=== PATIENT | male | born 1990 | race Two or more races ===

== ENCOUNTER 2019-12-21 20:13 | Emergency (ER) | payer OTHER ==
[~2019-12-21] VITALS: Ht 165.1 cm; Wt 63.5 kg
[2019-12-21] MEDS ORDERED: ACETAMINOPHEN 325 MG TAB PO ONE ×2 (21:12→21:15)
[2019-12-21] MEDS ORDERED: CARISOPRODOL 350 MG TAB PO ONE (22:45)
[2019-12-21] MEDS ORDERED: HYDROcodone-ACET 5/325MG TAB PO ONE (22:45)
[2019-12-22] VITALS: BP 114/74
== END 2019-12-22 00:10 | disposition home or self-care (01) ==
LOC: EDBD 20:13 → ER 20:16
DX: S33.5XXA Sprain of ligaments of lumbar spine, initial encounter (principal); M62.830 Muscle spasm of back; X50.9XXA Other and unspecified overexertion or strenuous movements or postures, initial encounter; Y93.89 Activity, other specified; Y92.89 Other specified places as the place of occurrence of the external cause; Y99.8 Other external cause status
CPT/HCPCS: 72128; 72131

== ENCOUNTER 2021-06-07 07:29 | Emergency (ER) | payer MEDICAID, OTHER ==
[~2021-06-07] VITALS: Ht 165.1 cm; Wt 63.5 kg
[2021-06-07 07:30] VITALS: BP 115/78
== END 2021-06-07 10:12 | disposition left against medical advice (07) ==
LOC: ER 07:29 → EDBD 07:29 → ER 08:30
DX: S69.91XA Unspecified injury of right wrist, hand and finger(s), initial encounter (principal); Z88.1 Allergy status to other antibiotic agents; W22.01XA Walked into wall, initial encounter; Y93.89 Activity, other specified; Y92.89 Other specified places as the place of occurrence of the external cause; Y99.8 Other external cause status
CPT/HCPCS: 73110; 73130

== ENCOUNTER 2023-10-29 23:10 | Emergency (ER) | payer MEDICAID ==
[~2023-10-29] VITALS: Ht 170.2 cm; Wt 70.0 kg
[2023-10-29] MEDS: IOHEXOL 300 MG/ML 100ML BOTTLE IJ ONE (23:28)
[2023-10-29 23:29] LABS: Basophils # (auto) 0 10 ^3/uL (0-0.2); Basophils % (auto) 0.2 % (0.0-2.0); Eosinophils # (auto) 0 10 ^3/uL (0-0.8); Eosinophils % (auto) 0.5 % (0.0-7.0); Hematocrit 43.4 % (41.0-53.0); Hemoglobin 14.7 g/dL (13.5-17.5); Lymphocytes # (auto) 2.8 10 ^3/uL (0.4-5.4); Lymphocytes % (auto) 27.9 % (10.0-50.0); Mean Corpuscular Hemoglobin 31.1 pg (28.0-32.0); Mean Corpuscular Hgb Conc. 33.7 g/dL (32.0-36.0); Mean Corpuscular Volume 92.1 fL (80.0-100.0); Monocytes # (auto) 0.7 10 ^3/uL (0-1.3); Monocytes % (auto) 7.4 % (0.0-12.0); Neutrophils # (auto) 6.3 10 ^3/uL (1.6-8.6); Platelet Count (auto) 220 10^3/uL (140-450); Red Blood Cells 4.72 10^6/uL (4.5-5.90); White Blood Cell 9.9 10^3/uL (4.4-10.8)
[2023-10-29] MEDS: MORPHINE SULFATE 4 MG/ML SYR/VIAL IV ONE (23:32)
[2023-10-29] MEDS: ONDANSETRON HCL 4 MG/2 ML VIAL IV ONE (23:33)
[2023-10-29] MEDS: TETANUS-DIPTH-ACEL PERTUSSIS 0.5ML SYR Tdap IM ONE (23:35)
[2023-10-29] MEDS: SODIUM CHLORIDE 0.9% 1,000 ML IVB ONE (23:44)
[2023-10-29 23:46] LABS: INR 1.07 (0.9-1.15); Partial Thromboplastin Time 23.3 SEC (24.5-34.5); Prothrombin Time 11.3 sec (9.3-11.8)
[2023-10-29 23:59] LABS: Chloride 106 mmol/L (98-107); Potassium 3.3 mmol/L (3.5-5.1); Sodium 136 mmol/L (136-145)
[2023-10-30] LABS: Anion Gap 5 (5-15); Carbon Dioxide 25 mmol/L (20-30)
[2023-10-30] MEDS ORDERED: MORPHINE SULFATE INJ 2 MG/ml SYRG IV ONE
[2023-10-30] MEDS: MORPHINE SULFATE 4 MG/ML SYR/VIAL ONE (00:03)
[2023-10-30] MEDS: MORPHINE SULFATE 4 MG/ML SYR/VIAL IV ONE (00:03)
[2023-10-30] MEDS: ONDANSETRON HCL 4 MG/2 ML VIAL IV ONE (00:04)
[2023-10-30 00:05] LABS: BUN/Creatinine Ratio 10.5 (10.0-20.0); Blood Urea Nitrogen 12 mg/dL (9-23); Glucose 132 mg/dL (74-106)
[2023-10-30 00:06] LABS: Blood Alcohol < 3.0 mg/dL (<10)
[2023-10-30] MEDS: HYDROmorphone HCL 2 MG/ML VL/or syr IV ONE (01:13)
[2023-10-30 01:16] LABS: Urine Bacteria None Seen /hpf (None Seen)
[2023-10-30 01:26] LABS: Urine Blood Negative /uL (Negative); Urine Clarity Clear (Clear); Urine Color Yellow (Yellow); Urine Mucus FEW (None Seen); Urine Protein, UAD 1+ (Negative); Urine Urobilinogen Normal (Negative); Urine WBC <1 /hpf (0 - 3)
[2023-10-30 01:28] LABS: Urine Specific Gravity > 1.050 (1.001-1.035)
[2023-10-30 01:35] VITALS: BP 110/75; PULSE 107; RESP 13; TEMP 98; O2SAT 93
[2023-10-30 01:40] LABS: Amphetamine Screen, Urine Neg (NEGATIVE); Barbiturate Scree,Urine Neg (NEGATIVE); Benzodiazephine Screen, Urine Neg (NEGATIVE); Cannabinoid Screen, Urine Pos (NEGATIVE); Cocaine Screen, Urine Neg (NEGATIVE); Opiate Scree,Urine Pos (NEGATIVE); Phencyclidine Screen, Urine Neg (NEGATIVE)
== END 2023-10-30 01:52 | disposition short-term general hospital (02) ==
LOC: ER 23:10 → EEVIPCON 23:10 → ER 10-30 01:52
DX: S31.139A Puncture wound of abdominal wall without foreign body, unspecified quadrant without penetration into peritoneal cavity, initial encounter (principal); Z88.8 Allergy status to other drugs, medicaments and biological substances; Z79.899 Other long term (current) drug therapy; Z86.2 Personal history of diseases of the blood and blood-forming organs and certain disorders involving the immune mechanism; W34.09XA Accidental discharge from other specified firearms, initial encounter; Y93.89 Activity, other specified; Y92.89 Other specified places as the place of occurrence of the external cause; Y99.8 Other external cause status
CPT/HCPCS: 36415; 71260; 74177; 80048; 80307; 80320; 81001; 85025; 85610; 85730; 86850; 86900; 86901; 90471; 90715; 93005; 96361; 96374; 96375; 96376; 99285; J1170; J2270; J2405; J7030; Q9967

== ENCOUNTER 2024-07-16 11:25 | Inpatient (IN) | payer MEDICAID ==
[~2024-07-16] VITALS: Ht 165.1 cm; Wt 68.3 kg
[2024-07-16 11:35] VITALS: PULSE 63; RESP 17; O2SAT 100
--- NOTE | 2024-07-16 11:50 | ED.PDOC ---
History of Present Illness HPI Comments 33M BIBA w/ prior MHx of Prolapsed Valve, Anxiety, Depression and c/c of CP x8hrs. EMS report that the pt woke up w/ Right Sided CP, which is non radiating but the the pt did have SOB, N/, Right/left Arm numbness. Pt notes that he did have blood in the stool for the past 2 days. EMS note that the pt was given 324mg of aspirin via IV. Denies chills, fever, /V/D. No other associated symptoms, modifiers, recent injuries or sick contacts present at this time. Chief Complaint: Chest Pain Time Seen by MD: 11:20 Reviewed Notes: Nurses Notes, Medications, Allergies Allergies: Coded Allergies: Doxycycline (Verified Allergy, Unknown, 06/07/21) Information Source: Patient, Emergency Med Personnel Mode of Arrival: EMS Severity: Moderate Timing: Hours Duration: Since onset, Hours Prehospital treatment: Treatment (Ibuprofen) Past Medical History PAST MEDICAL HISTORY: Anxiety, Depression, Denies Past Medical History (Other): Prolapsed Valve Surgical History: Denies all surgeries Family History Family History: Reviewed,noncontributory to illness, Unknown Social History Smoker: Non-Smoker Alcohol: Denies ETOH Use Drugs: Marijuana Lives In: Home Constitutional: denies: chills, diaphoresis, fatigue, fever, malaise, sweats, weakness, others EENTM: denies: blurred vision, double vision, ear bleeding, ear discharge, ear drainage, ear pain, ear ringing, eye pain, eye redness, hearing loss, mouth pain, mouth swelling, nasal discharge, nose bleeding, nose congestion, nose pain, photophobia, tearing, throat pain, throat swelling, voice changes, others Respiratory: reports: shortness of breath; denies: cough, hemoptysis, orthopnea, SOB at rest, SOB with excertion, stridor, wheezing, others Cardiovascular: reports: chest pain; denies: dizzy spells, diaphoresis, Dyspnea on exertion, edema, irregular heart beat, left arm pain, lightheadedness, palpitations, PND, syncope, others Gastrointestinal: reports: nausea; denies: abdomen distended, abdominal pain, blood streaked bowels, constipated, diarrhea, dysphagia, difficulty swallowing, hematemesis, melena, poor appetite, poor fluid intake, rectal bleeding, rectal pain, vomiting, others Genitourinary: denies: burning, dysuria, flank pain, frequency, hematuria, incontinence, penile discharge, penile sore, pain, testicle pain, testicle swelling, urgency, others Neurological: reports: numbness (Left Arm/Right Arm); denies: dizziness, fainting, headache, left sided numbness, left sided weakness, paresthesia, pre- existing deficit, right sided numbness, right sided weakness, seizure, speech problems, tingling, tremors, weakness, others Musculoskeletal: denies: back pain, gout, joint pain, joint swelling, muscle pain, muscle stiffness, neck pain, others Integumetry: denies: bruises, change in color, change in hair/nails, dryness, laceration, lesions, lumps, rash, wounds, others Allergic/Immunocompromised: denies: Difficulty Healing, Frequent Infections, Hives, Itching, others Hematologic/Lymphatic: denies: anemia, blood clots, easy bleeding, easy bruising, swollen glands, others Endocrine: denies: excessive hunger, excessive sweating, excessive thirst, excessive urination, flushing, intolerance to cold, intolerance to heat, unexplained weight gain, unexplained weight loss, others Psychiatric: denies: anxiety, bipolar disorder, depression, hopeless, panic disorder, schizophrenia, sleepless, suicidal, others All Other Systems: Reviewed and Negative Physical Exam General Appearance: Moderate Distress, Normal HEENT: Normal ENT Inspection, Pharynx Normal, TMs Normal Neck: Full Range of Motion, Non-Tender, Normal, Normal Inspection Respiratory: Chest Non-Tender, Lungs Clear, No Accessory Muscle Use, No Respiratory Distress, Normal Breath Sounds Cardiovascular: No Edema, No JVD, No Murmur, No Gallop, Normal Peripheral Pulses, Regular Rate/Rhythm Breast Exam: Deferred Gastrointestinal: No Organomegaly, Non Tender, No Pulsatile Mass, Normal Bowel Sounds, Soft Genitalia: Deferred Pelvic: Deferred Rectal: Deferred Extremities: No calf tenderness, Normal capillary refill, Normal inspection, Normal range of motion, Non-tender, No pedal edema Musculoskeletal : Apperance: Normal Neurologic: Alert, 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 Was a procedure done?: No EKG EKG : Pulse Rate (adult): 81 Cardiac Rhythm: NSR Differential Dx Considerations may include: Anxiety Electrolyte imbalance X-Ray, Labs, Meds, VS Vital Signs Date Time Temp Pulse Resp B/P (MAP) Pulse Ox O2 Delivery O2 Flow Rate FiO2 07/16/24 12:29 56 07/16/24 12:22 81 07/16/24 12:00 64 07/16/24 11:47 97.7 80 30 110/74 (86) 98 97.7 07/16/24 11:35 97.7 63 17 118/64 (82) 100 97.7 07/16/24 11:35 63 17 100 Room Air* 0 21 07/16/24 11:25 81 Lab Test 07/16/24 12:54 07/16/24 11:41 07/16/24 11:36 Range/Units Troponin I High Sensitivity Pending 3 L </=54 ng/L White Blood Count 5.7 4.4-10.8 10^3/uL Red Blood Count 5.00 4.5-5.90 10^6/uL Hemoglobin 15.2 13.5-17.5 g/dL Hematocrit 44.1 41.0-53.0 % Mean Corpuscular Volume 88.3 80.0-100.0 fL Mean Corpuscular Hemoglobin 30.4 28.0-32.0 pg Mean Corpuscular Hemoglobin Concent 34.4 32.0-36.0 g/dL Red Cell Distribution Width 13.2 11.8-14.3 % Platelet Count 220 140-450 10^3/uL Mean Platelet Volume 9.0 6.9-10.8 fL Neutrophils (%) (Auto) 62.4 37.0-80.0 % Lymphocytes (%) (Auto) 29.2 10.0-50.0 % Monocytes (%) (Auto) 7.4 0.0-12.0 % Eosinophils (%) (Auto) 0.7 0.0-7.0 % Basophils (%) (Auto) 0.3 0.0-2.0 % Neutrophils # (Auto) 3.6 1.6-8.6 10 ^3/uL Lymphocytes # (Auto) 1.7 0.4-5.4 10 ^3/uL Monocytes # (Auto) 0.4 0-1.3 10 ^3/uL Eosinophils # (Auto) 0 0-0.8 10 ^3/uL Basophils # (Auto) 0 0-0.2 10 ^3/uL Nucleated Red Blood Cells 0.3 % Sodium Level 137 136-145 mmol/L Potassium Level 3.5 3.5-5.1 mmol/L Chloride Level 104 98-107 mmol/L Carbon Dioxide Level 23 20-31 mmol/L Anion Gap 10 5-15 Blood Urea Nitrogen 11 9-23 mg/dL Creatinine 0.91 0.700-1.30 mg/dL Glomerular Filtration Rate Calc 113 >90 mL/min BUN/Creatinine Ratio 12.1 10.0-20.0 Serum Glucose 102 74-106 mg/dL Calcium Level 9.7 8.7-10.4 mg/dL Total Bilirubin 0.6 0.2-1.0 mg/dL Aspartate Amino Transferase (AST) 27 13-40 U/L Alanine Aminotransferase (ALT) 17 7-40 U/L Alkaline Phosphatase 80 46-116 U/L Total Protein 7.4 5.7-8.2 g/dL Albumin 4.8 3.2-4.8 g/dL Urine Opiates Screen Pending Urine Fentanyl Screen Pending Urine Barbiturates Screen Pending Urine Phencyclidine Screen Pending Urine Amphetamines Screen Pending Urine Benzodiazepines Screen Pending Urine Cocaine Screen Pending Urine Cannabinoids Screen Pending Current Medications Medications (Trade) Dose Ordered Sig/Caty Route Start Time Stop Time Status Last Admin Lorazepam (Ativan Inj) 1 mg ONCE ONCE IV 07/16/24 12:00 07/16/24 12:01 DC 07/16/24 12:14 Sodium Chloride 1,000 ml @ 1,000 mls/hr Q1H ONCE IV 07/16/24 12:00 07/16/24 12:59 DC 07/16/24 12:13 Ondansetron HCl (Zofran) 4 mg ONCE ONCE IV 07/16/24 12:00 07/16/24 12:01 DC 07/16/24 12:13 PROCEDURE(s): CXRP - CHEST PORTABLE REASON: CHEST PAIN ORDER NUMBER(s): [id number], ACCESSION NUMBER(s): [id number] EXAM: XR Chest, 1 View CLINICAL INDICATION: CHEST PAIN TECHNIQUE: Frontal view of the chest. COMPARISON: None FINDINGS: LUNGS AND PLEURAL SPACES: Unremarkable. No consolidation. No pneumothorax. HEART: Unremarkable. No cardiomegaly. MEDIASTINUM: Unremarkable. Normal mediastinal contour. BONES/JOINTS: Unremarkable. No acute fracture. OTHER FINDINGS: . IMPRESSION: No acute cardiopulmonary process. Patient alert. Came in because of chest pain. EKG reviewed does show early repolarization. Vitals stable. Answering questions. Establish intravenous access. Was given fluids. Was given Zofran. Was given Ativan. WBC within normal limits. Hemoglobin within normal limits. Possibly drug use. He was given aspirin in the field. Counseled patient on effects of smoking cigarettes for 15 minutes. He does use marijuana. Reviewed his history. Explained to the patient. Continue monitoring. Time of 1ST Reevaluation: 11:50 Reevaluation 1ST: Unchanged Patient Education/Counseling: Diagnosis, Treatment, Prognosis Family Education/Counseling: No Family Present Departure 1 Departure Time of Disposition: 12:22 Impression: Primary Impression: Chest pain of unknown etiology Disposition: ADMITTED INPATIENT Admit to: Med Surg Condition: Guarded Critical Care Note Critical Care Time?: Yes (90 min-critical care time only) Critical care comment: Continue monitor Stability Stability form required: No Heart Score Heart Score: Heart Score Response (Comments) Value History Slightly Suspicious 0 EKG Normal 0 Age <45 0 Risk Factors 1 or 2 risk factors 1 Troponin Normal limit 0 Total 1 I personally scribed for GUSTAVO SIMPSON MD ([email or web address]) on 07/16/24 at 11:50. Electronically submitted by Raad Gomez ([email or web address]). I personally scribed for GUSTAVO SIMPSON MD ([email or web address]) on 07/16/24 at 13:29. Electronically submitted by Raad Gomez ([email or web address]). GUSTAVO SIMPSON MD July 16, 2024 11:50
[2024-07-16 11:52] LABS: Basophils # (auto) 0 10 ^3/uL (0-0.2); Basophils % (auto) 0.3 % (0.0-2.0); Eosinophils # (auto) 0 10 ^3/uL (0-0.8); Eosinophils % (auto) 0.7 % (0.0-7.0); Hematocrit 44.1 % (41.0-53.0); Hemoglobin 15.2 g/dL (13.5-17.5); Lymphocytes # (auto) 1.7 10 ^3/uL (0.4-5.4); Lymphocytes % (auto) 29.2 % (10.0-50.0); Mean Corpuscular Hemoglobin 30.4 pg (28.0-32.0); Mean Corpuscular Hgb Conc. 34.4 g/dL (32.0-36.0); Mean Corpuscular Volume 88.3 fL (80.0-100.0); Monocytes # (auto) 0.4 10 ^3/uL (0-1.3); Monocytes % (auto) 7.4 % (0.0-12.0); Neutrophils # (auto) 3.6 10 ^3/uL (1.6-8.6); Neutrophils % (auto) 62.4 % (37.0-80.0); Nucleated Red Blood Cells % 0.3 %; Platelet Count (auto) 220 10^3/uL (140-450); Red Cell Distribution Width 13.2 % (11.8-14.3); White Blood Cell 5.7 10^3/uL (4.4-10.8)
[2024-07-16 12:13] LABS: Alanine Aminotransferase 17 U/L (7-40); Albumin 4.8 g/dL (3.2-4.8); Alkaline Phosphatase 80 U/L (46-116); Anion Gap 10 (5-15); Aspartate Aminotransferase 27 U/L (13-40); BUN/Creatinine Ratio 12.1 (10.0-20.0); Blood Urea Nitrogen 11 mg/dL (9-23); Calcium 9.7 mg/dL (8.7-10.4); Carbon Dioxide 23 mmol/L (20-31); Chloride 104 mmol/L (98-107); Glucose 102 mg/dL (74-106); Potassium 3.5 mmol/L (3.5-5.1); Sodium 137 mmol/L (136-145); Total Protein 7.4 g/dL (5.7-8.2)
[2024-07-16] MEDS: ONDANSETRON HCL 4 MG/2 ML VIAL IV ONE (12:13)
[2024-07-16] MEDS: SODIUM CHLORIDE 0.9% 1,000 ML IV ONE (12:13)
[2024-07-16 12:14] LABS: Bilirubin, Total 0.6 mg/dL (0.2-1.0)
[2024-07-16] MEDS: LORazepam 2MG/ML-1ML VIAL IV ONE (12:14)
--- NOTE | 2024-07-16 12:17 | DVH ---
EXAM: XR Chest, 1 View CLINICAL INDICATION: CHEST PAIN TECHNIQUE: Frontal view of the chest. COMPARISON: None FINDINGS: LUNGS AND PLEURAL SPACES: Unremarkable. No consolidation. No pneumothorax. HEART: Unremarkable. No cardiomegaly. MEDIASTINUM: Unremarkable. Normal mediastinal contour. BONES/JOINTS: Unremarkable. No acute fracture. OTHER FINDINGS: . IMPRESSION: No acute cardiopulmonary process.
[2024-07-16 13:49] LABS: Amphetamine Screen, Urine Neg (NEGATIVE); Barbiturate Scree,Urine Neg (NEGATIVE); Benzodiazephine Screen, Urine Neg (NEGATIVE); Cannabinoid Screen, Urine Pos (NEGATIVE); Cocaine Screen, Urine Pos (NEGATIVE); Opiate Scree,Urine Neg (NEGATIVE); Phencyclidine Screen, Urine Neg (NEGATIVE)
[2024-07-16 14:00] VITALS: BP 123/83; PULSE 57; RESP 12; TEMP 97.9; O2SAT 100
[2024-07-16] MEDS ORDERED: MORPHINE SULFATE 4 MG/ML SYR/VIAL IV PRN (14:30)
[2024-07-16] MEDS ORDERED: ONDANSETRON HCL 4 MG/2 ML VIAL IV PRN (14:30)
[2024-07-16] MEDS ORDERED: ACETAMINOPHEN 325 MG TAB PO PRN (14:30)
[2024-07-16] MEDS ORDERED: MORPHINE SULFATE INJ 2 MG/ml SYRG IV PRN (14:30)
[2024-07-16] MEDS ORDERED: NITROGLYCERIN 0.4 MG SL TAB SL PRN ×2 (14:30)
[2024-07-16] MEDS ORDERED: CYAN500T3 PO (14:34)
[2024-07-16] MEDS ORDERED: ASCO500T6 PO (14:34)
[2024-07-16] MEDS ORDERED: GABA-1250 PO (14:34)
[2024-07-16] MEDS ORDERED: CHOL200043 PO (14:34)
[2024-07-16] MEDS ORDERED: DEXL30CA6 PO (14:34)
--- NOTE | 2024-07-16 14:35 | DVHHP2 ---
History of Present Illness Reason for Visit: Chest pain History of Present Illness Jerald Ruelas is a 33-year-old male with past medical history of chronic left knee pain, prolapsed valve, anxiety, and depression who presents to the ED with chest pain with SOB, nausea, and dizziness x 1 day. Patient reports that he woke up this morning around 8-9 from his sleep and had chest pain 7/10 pressure- like and constant. He also reports that he has been having dark stools for the last 3 days, 4x yesterday and 1 today. He also reports while wiping bright red blood is noted. Patient also endorses that he thinks he has reflux. Patient endorses that he smokes cigarettes daily, drinks 1-2 beers daily, and uses marijuana. Patient also reports that he sees pain management for his left knee pain. He also endorses that he does not use home oxygen but upon examination he is on 3 L nasal cannula. Patient denies any recent trauma or injury, recent sick contacts, recent i ngestion of spoiled food, recent travels, abdominal, vomiting, diarrhea, fever, or chills. Psych: Anxiety, Depression Past Medical History Chronic left knee pain Prolapse fell Past Surgical History: Other (Left knee tumor removal in 2020 at [place]) Family History: None Smoke: <1 pack per day ALCOHOL: heavy Drugs: Cocaine, Marijuana Lives: with Family Domestic Violence: Neg Review of Systems Constitutional: Yes: Other (Dizziness) Respiratory: Shortness of breath Cardiovascular: Chest Pain Gastrointestinal: Nausea, Melena Allergies: Coded Allergies: Doxycycline (Verified Allergy, Unknown, 06/07/21) Medications Current Medications Medications Dose Ordered Sig/Caty Route Start Time Stop Time Status Last Admin Dose Admin Aspirin 81 mg DAILY PO 07/17/24 10:00 UNV Exam Vital Signs Vital Signs Date Time Temp Pulse Resp B/P (MAP) Pulse Ox O2 Delivery O2 Flow Rate FiO2 07/16/24 14:00 97.9 57 12 123/83 (96) 100 97.9 07/16/24 11:35 Room Air* 0 21 General Appearance: Alert, Oriented X3, Cooperative, No acute distress HEENT: Atraumatic, PERRLA, EOMI, Mucous membr. moist/pink Respiratory: Normal air movement Cardiovascular: Normal S1, Normal S2 Abdominal: Normal bowel sounds, Soft Extremities: No clubbing, No cyanosis, No edema, Normal pulses, No tenderness/swelling Skin: No significant lesion Neuro: Normal speech, Strength at 5/5 X4 ext, Normal tone, Sensation intact Psych/Mental Status: Mental status NL, Mood NL Labs/Xrays Labs Test 07/16/24 12:54 07/16/24 11:41 07/16/24 11:36 Range/Units Troponin I High Sensitivity 3 L </=54 ng/L White Blood Count 5.7 4.4-10.8 10^3/uL Red Blood Count 5.00 4.5-5.90 10^6/uL Hemoglobin 15.2 13.5-17.5 g/dL Hematocrit 44.1 41.0-53.0 % Mean Corpuscular Volume 88.3 80.0-100.0 fL Mean Corpuscular Hemoglobin 30.4 28.0-32.0 pg Mean Corpuscular Hemoglobin Concent 34.4 32.0-36.0 g/dL Red Cell Distribution Width 13.2 11.8-14.3 % Platelet Count 220 140-450 10^3/uL Mean Platelet Volume 9.0 6.9-10.8 fL Neutrophils (%) (Auto) 62.4 37.0-80.0 % Lymphocytes (%) (Auto) 29.2 10.0-50.0 % Monocytes (%) (Auto) 7.4 0.0-12.0 % Eosinophils (%) (Auto) 0.7 0.0-7.0 % Basophils (%) (Auto) 0.3 0.0-2.0 % Neutrophils # (Auto) 3.6 1.6-8.6 10 ^3/uL Lymphocytes # (Auto) 1.7 0.4-5.4 10 ^3/uL Monocytes # (Auto) 0.4 0-1.3 10 ^3/uL Eosinophils # (Auto) 0 0-0.8 10 ^3/uL Basophils # (Auto) 0 0-0.2 10 ^3/uL Nucleated Red Blood Cells 0.3 % Sodium Level 137 136-145 mmol/L Potassium Level 3.5 3.5-5.1 mmol/L Chloride Level 104 98-107 mmol/L Carbon Dioxide Level 23 20-31 mmol/L Anion Gap 10 5-15 Blood Urea Nitrogen 11 9-23 mg/dL Creatinine 0.91 0.700-1.30 mg/dL Glomerular Filtration Rate Calc 113 >90 mL/min BUN/Creatinine Ratio 12.1 10.0-20.0 Serum Glucose 102 74-106 mg/dL Calcium Level 9.7 8.7-10.4 mg/dL Total Bilirubin 0.6 0.2-1.0 mg/dL Aspartate Amino Transferase (AST) 27 13-40 U/L Alanine Aminotransferase (ALT) 17 7-40 U/L Alkaline Phosphatase 80 46-116 U/L Total Protein 7.4 5.7-8.2 g/dL Albumin 4.8 3.2-4.8 g/dL Urine Opiates Screen Neg NEGATIVE Urine Fentanyl Screen Neg NEGATIVE Urine Barbiturates Screen Neg NEGATIVE Urine Phencyclidine Screen Neg NEGATIVE Urine Amphetamines Screen Neg NEGATIVE Urine Benzodiazepines Screen Neg NEGATIVE Urine Cocaine Screen Pos NEGATIVE Urine Cannabinoids Screen Pos NEGATIVE EXAM: XR Chest, 1 View CLINICAL INDICATION: CHEST PAIN TECHNIQUE: Frontal view of the chest. COMPARISON: None FINDINGS: LUNGS AND PLEURAL SPACES: Unremarkable. No consolidation. No pneumothorax. HEART: Unremarkable. No cardiomegaly. MEDIASTINUM: Unremarkable. Normal mediastinal contour. BONES/JOINTS: Unremarkable. No acute fracture. OTHER FINDINGS: . IMPRESSION: No acute cardiopulmonary process. Assessment/Plan Assessment/Plan Assessment Chest pain rule out ACS Melena rule out GI bleed Acute hypoxic respiratory failure Tobacco use Marijuana and cocaine positive Alcohol use History of chronic left knee pain History of prolapse valve History of anxiety History of depression History of left knee tumor removal Plan Admit to tele CT abdomen and pelvis ordered Antiemetics Pain management Chest x-ray noted EKG noted likely vasospastic angina secondary to cocaine use NS 1 L given ED Ativan given ED UDS EKG Troponin negative x2 Echo ordered A1c Lipid panel TSH Stool occult ordered Diet Hold anti coags due to possible GI bleed DVT prophylaxis-not indicated patient ambulating PUD prophylaxis-PPIs Discussed plan of care with patient and nurse GI consult Counseled patient on cessation of tobacco use, marijuana and cocaine use, and al cohol use Plan discussed with: Patient My Orders Orders - DEANA OZUNA Procedure Category Date Status Time Stool Occult Blood LAB 07/16/24 Transmitted 14:16 Admit ADMIT 07/16/24 Transmitted 14:16 Code Status CODE 07/16/24 Transmitted 14:16 Vital Signs CASI 07/16/24 In Process 14:16 Band Attacher CASI 07/16/24 In Process 14:16 Cardiac DIET 07/16/24 Transmitted Diet-2gna,Lofat,Lochol Dinner Aspirin Tablet PHA 07/17/24 Transmitted 10:00 Lipitor 40mg Hs PHA 07/16/24 Transmitted Hi-Intensity 22:00 Morphine Sulfate PHA 07/16/24 Transmitted Injection 14:30 Acetaminophen Tablet PHA 07/16/24 Transmitted (Tylenol Tablet) 14:30 Complete Blood Count LAB 07/17/24 Verified 04:00 Basic Metabolic Panel LAB 07/17/24 Verified 04:00 Magnesium LAB 07/17/24 Verified 04:00 Echo 2d Mode Cardiac US 07/16/24 Logged DOP 14:16 Nitroglycerin PHA 07/16/24 Transmitted Sublingual (Ntrostat 14:30 Ondansetron Hcl PHA 07/16/24 Transmitted (Zofran) 14:30 Electrocardigram EKG 07/17/24 Logged 04:00 Troponin-I Hs LAB 07/16/24 Transmitted 14:16 Cardiac CASI 07/16/24 In Process Rehabilitation - Outpa Comprehensive LAB 07/18/24 Verified Metabolic Panel 04:00 Nitroglycerin PHA 07/16/24 Transmitted Sublingual (Ntrostat 14:30 Morphine Sulfate PHA 07/16/24 Transmitted Injection 14:30 Stat Ekg For Chest [facility] 07/16/24 In Process Pain 14:16 Notify Of Changes [facility] 07/16/24 In Process From Base 14:16 Chronic Specialist For [facility] 07/16/24 In Process 24 Hours 14:16 Emergency Dysrhythmia [facility] 07/16/24 In Process Protocol 14:16 Rhythm Strips Once [facility] 07/16/24 In Process Every Shift 14:16 Oxygen By Nasal RT 07/16/24 Transmitted Cannula 14:16 Thyroid Stimulating LAB 07/16/24 Transmitted Hormone 14:16 Lipid Panel LAB 07/16/24 Transmitted 14:16 Hemoglobin A1c LAB 07/16/24 Transmitted 14:16 Ascorbic Acid Tablet PHA 07/17/24 Verified (Vitamin C Tablet) 10:00 Cyanocobalamin PHA 07/17/24 Verified (Vitamin B-12) 10:00 Gabapentin Capsule PHA 07/16/24 Verified (Neurontin Capsule) 22:00 (Nf) Cholecalciferol PHA 07/17/24 Verified (D3 Super Strength) 10:00 Date of Service: July 16, 2024 Billing Provider: THON,SALINA K DIRECTOR SPEECH AND HEARING Common Visit Codes: [id number] INP/OBS CARE (HIGH) DEANA OZUNA DIRECTOR SPEECH AND HEARING July 16, 2024 14:35
[2024-07-16 14:51] LABS: Triglycerides 128 mg/dL (< 150)
[2024-07-16 14:53] LABS: Cholesterol 183 mg/dL (< 200); HDL Cholesterol 53 mg/dL (40-59)
[2024-07-16 14:55] LABS: LDL Cholesterol 117 mg/dL (< 100)
[2024-07-16] MEDS: PANTOPRAZOLE 40 MG/10 ML VIAL INJ IV SCH (15:00)
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
--- NOTE | 2024-07-16 17:30 | DVHSR ---
APPROVED REPORT EXAM: Two-dimensional and M-mode echocardiogram with Doppler and color Doppler. Blood Pressure: 123/83 mmHg INDICATION Chest Pain RISK FACTORS Height: 5'5", Weight: 150 DIMENSIONS LVDd4.8 (3.8-5.7cm)LA (2D)4.2 (1.9-4.0cm)Aortic Root3.2 (2.0-3.7cm) LVDs3.1 (2.5-4.0cm)LA (MM) (1.9-4.0cm)Aortic Cusp Exc1.8 (1.5-2.0cm) EF (%) 60.0 (55-70%)Rt. Atrium4.0 (1.9-4.0cm)Asc. Aorta cm IVSd0.9 (0.7-1.1cm)RV (D)3.4 (1.8-2.4cm) PWd0.8 (0.7-1.1cm) Mitral Valve MitralMitral Stenosis E wave0.90m/sMV Mean GR.mmHg A wave0.58m/sMV Peak GR.mmHg E/A ratio1.62D MVAcm2 DECEL [id number] 1/2 Timems Aortic Valve Aortic ValveAortic Stenosis V11.14m/Melina Mean GR.4mmHg V21.54m/Melina Peak GR.9mmHg LVOT Diameter1.8 (1.8-2.4cm)Doppler AVA1.88cm2 Pulmonic Valve V21.04m/s Tricuspid Valve TR Velocity2.24m/s [id number] Conclusion LV EF IS 65% NORMAL VALVES NORMAL RV FUNCTION NO EFFUSION
--- NOTE | 2024-07-16 17:54 | DVH ---
Exam: CT CT AB PEL WO CON-NO ORAL OR IV History: melena Comparison Study: None TECHNIQUE: Multidetector CT of the abdomen was performed from lung bases to pubic symphysis. Imaging was performed without IV contrast. Axial, coronal and sagittal multiplanar reformats were obtained fr om the axial data set by the technologist. Radiation Dose Information: CT Dose: CTDI volume is 7.65 mGy. Dose-length product is 389.08 mGy*cm FINDINGS: Evaluation of solid organs is limited due to lack of intravenous contrast use. Findings: Lung Bases: No acute or significant lung base finding. Normal heart size. No pleural or pericardial effusion. Liver: The liver is normal in size. No focal lesions. Gallbladder and Biliary Tree: Unremarkable Spleen: Unremarkable Pancreas: The pancreas is grossly normal in appearance. Adrenal Glands: Unremarkable Kidneys: Kidneys are grossly normal without calculi or hydronephrosis. Bladder: Grossly unremarkable for degree of distention. Bowel: The stomach is grossly normal in appearance. Small bowel and colon are normal in caliber and d istribution. The appendix is not visualized; however, no secondary findings of acute appendicitis id entified. Ascites: Absent Lymphadenopathy: No mesenteric, retroperitoneal or periportal lymphadenopathy. Abdominal Wall and Mesentery: Unremarkable. Vasculature: The visualized abdominal aorta is normal in size and caliber. Evaluation of abdominal a nd pelvic vessels is limited due to lack of intravenous contrast. Pelvic Organs: Unremarkable Musculoskeletal: No aggressive focal bony lesions, acute fractures or dislocation. Soft tissues: Unremarkable IMPRESSION: 1. No abnormal dilatation of the colon or small bowel. 2. No pneumoperitoneum or ascites. Radiation optimization: All CT scans at this facility use at least one of these dose optimization jonathan hniques: automated exposure control mA and/or kV adjustment per patient size (includes targeted exam s where dose is matched to clinical indication) or iterative reconstruction. HS:Y
[2024-07-16] MEDS ORDERED: ATORVASTATIN 20 MG TAB PO SCH (22:00)
[2024-07-16] MEDS ORDERED: GABAPENTIN 300 MG CAP PO SCH (22:00)
--- NOTE | 2024-07-17 07:13 | ECG ---
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
[2024-07-17] MEDS ORDERED: CYANOCOBALAMIN 500 MCG TAB PO SCH (10:00)
[2024-07-17] MEDS ORDERED: ASPirin 81 mg TAB PO SCH (10:00)
[2024-07-17] MEDS ORDERED: CHOLECALCIFEROL PO SCH (10:00)
[2024-07-17] MEDS ORDERED: CHOLECALCIFEROL (VITD3) 1,000UNIT=25mCg TAB PO SCH (10:00)
[2024-07-17] MEDS ORDERED: ASCORBIC ACID 500 MG TAB PO SCH (10:00)
--- NOTE | 2024-07-17 18:32 | ECG ---
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
== END 2024-07-16 16:25 | disposition left against medical advice (07) | DRG 253 ==
LOC: ER 11:25 → EDBD 11:25 → OVERFLOW 14:16
DX: K92.2 Gastrointestinal hemorrhage, unspecified (principal); J96.01 Acute respiratory failure with hypoxia; I24.9 Acute ischemic heart disease, unspecified; K92.1 Melena; I20.9 Angina pectoris, unspecified; F14.90 Cocaine use, unspecified, uncomplicated; F12.90 Cannabis use, unspecified, uncomplicated; G89.29 Other chronic pain; F41.9 Anxiety disorder, unspecified; F10.90 Alcohol use, unspecified, uncomplicated; F17.210 Nicotine dependence, cigarettes, uncomplicated; M25.562 Pain in left knee; K21.9 Gastro-esophageal reflux disease without esophagitis; Z53.29 Procedure and treatment not carried out because of patient's decision for other reasons; Z88.1 Allergy status to other antibiotic agents
CPT/HCPCS: 36415; 71045; 74176; 80053; 80061; 80307; 83036; 83690; 84443; 84484; 85025; 93005; 93306; 96360; 99291; 99292; G0378; J2405; J2470

== ENCOUNTER 2024-08-15 10:08 | Emergency (ER) | payer MEDICAID ==
[~2024-08-15] VITALS: Ht 165.1 cm; Wt 68.2 kg
[~2024-08-15 10:08] MED LIST: ASCO500T6 PO; CHOL200043 PO; CYAN500T3 PO; DEXL30CA6 PO; GABA-1250 PO
[2024-08-15 10:15] VITALS: BP 140/80; TEMP 98.3
[2024-08-15 10:25] VITALS: PULSE 57; RESP 16; O2SAT 100
[2024-08-15] MEDS: FAMOTIDINE 20 MG TAB PO ONE (10:29)
[2024-08-15] MEDS: ONDANSETRON ODT 4 MG TAB PO ONE (10:30)
[2024-08-15] MEDS: ASPirin 81 mg TAB PO ONE (10:30)
[2024-08-15 10:46] LABS: Basophils # (auto) 0 10 ^3/uL (0-0.2); Basophils % (auto) 0.2 % (0.0-2.0); Eosinophils # (auto) 0.1 10 ^3/uL (0-0.8); Eosinophils % (auto) 1.1 % (0.0-7.0); Hematocrit 45.7 % (41.0-53.0); Hemoglobin 15.8 g/dL (13.5-17.5); Lymphocytes # (auto) 1.8 10 ^3/uL (0.4-5.4); Lymphocytes % (auto) 27.6 % (10.0-50.0); Mean Corpuscular Hemoglobin 30.9 pg (28.0-32.0); Mean Corpuscular Hgb Conc. 34.5 g/dL (32.0-36.0); Mean Corpuscular Volume 89.5 fL (80.0-100.0); Monocytes # (auto) 0.6 10 ^3/uL (0-1.3); Monocytes % (auto) 8.8 % (0.0-12.0); Neutrophils % (auto) 62.3 % (37.0-80.0); Nucleated Red Blood Cells % 0.2 %; Platelet Count (auto) 209 10^3/uL (140-450); Red Blood Cells 5.11 10^6/uL (4.5-5.90); Red Cell Distribution Width 13.5 % (11.8-14.3); White Blood Cell 6.5 10^3/uL (4.4-10.8)
[2024-08-15 10:55] LABS: Chloride 106 mmol/L (98-107); Potassium 4.1 mmol/L (3.5-5.1); Sodium 142 mmol/L (136-145)
[2024-08-15 10:56] LABS: Anion Gap 7 (5-15); Calcium 10.2 mg/dL (8.7-10.4); Carbon Dioxide 29 mmol/L (20-31)
[2024-08-15 11:01] LABS: BUN/Creatinine Ratio 10.1 (10.0-20.0); Blood Urea Nitrogen 10 mg/dL (9-23); Glucose 87 mg/dL (74-106)
--- NOTE | 2024-08-15 11:12 | DVH ---
CHEST RADIOGRAPH Indication: chest pain Technique: Single frontal view of the chest was obtained COMPARISON: XY CHEST PORTABLE on DOS: 07/16/24 FINDINGS: Lines and Tubes: None Lungs: Clear Pleura: No effusion. No pneumothorax. Cardiomediastinal contours: Unremarkable Bones: Unremarkable IMPRESSION: No acute disease.
--- NOTE | 2024-08-15 11:17 | ED.PDOC ---
History of Present Illness HPI Comments 34-year-old male presents to the ER with prior medical history of mitral valve prolapse, anxiety, depression; surgical history of left leg and a chief complaint of chest pain. Patient reports on having chest pain for 1 hour in the epigastric region which is nonradiating and start today. Denies chills, fever, N/V/D, SOB. No other associated symptoms, modifiers, recent injuries or sick contacts present at this time. Chief Complaint: Chest Pain Time Seen by MD: 10:20 Reviewed Notes: Nurses Notes, Medications, Allergies Allergies: Coded Allergies: Doxycycline (Verified Allergy, Unknown, 06/07/21) Home Meds Reported Medications Cyanocobalamin (Gnp Vitamin B12) 500 Mcg Tab, 1 TAB PO DAILY 07/16/24 Cholecalciferol (D3 SUPER STRENGTH) 2,000 Unit Cap, 1 CAP PO DAILY 07/16/24 Ascorbic Acid (Gnp Vitamin C W/Kim Hips) 500 Mg Tab, 1 TAB PO DAILY 07/16/24 Dexlansoprazole (Dexlansoprazole) 30 Mg Cap, PO 07/16/24 Gabapentin (Gabapentin) 300 Mg Cap, 1 CAP PO TID 07/16/24 Information Source: Patient Mode of Arrival: Ambulatory Severity: Moderate Timing: Minutes Duration: Since onset, Minutes Prehospital treatment: None Past Medical History PAST MEDICAL HISTORY: Anxiety, Depression Past Medical History (Other): Mitral valve prolapse Surgical History: Denies all surgeries Family History Family History: Reviewed,noncontributory to illness, Unknown Social History Smoker: Cigarettes Alcohol: Occasionally Drugs: Denies Drug Use Lives In: Home Constitutional: denies: chills, diaphoresis, fatigue, fever, malaise, sweats, weakness, others EENTM: denies: blurred vision, double vision, ear bleeding, ear discharge, ear drainage, ear pain, ear ringing, eye pain, eye redness, hearing loss, mouth pain, mouth swelling, nasal discharge, nose bleeding, nose congestion, nose pain, photophobia, tearing, throat pain, throat swelling, voice changes, others Respiratory: denies: cough, hemoptysis, orthopnea, SOB at rest, shortness of breath, SOB with excertion, stridor, wheezing, others Cardiovascular: reports: chest pain; denies: dizzy spells, diaphoresis, Dyspnea on exertion, edema, irregular heart beat, left arm pain, lightheadedness, palpitations, PND, syncope, others Gastrointestinal: denies: abdomen distended, abdominal pain, blood streaked bowels, constipated, diarrhea, dysphagia, difficulty swallowing, hematemesis, melena, nausea, poor appetite, poor fluid intake, rectal bleeding, rectal pain, vomiting, others Genitourinary: denies: burning, dysuria, flank pain, frequency, hematuria, incontinence, penile discharge, penile sore, pain, testicle pain, testicle swelling, urgency, others Neurological: denies: dizziness, fainting, headache, left sided numbness, left sided weakness, numbness, paresthesia, pre-existing deficit, right sided numbness, right sided weakness, seizure, speech problems, tingling, tremors, weakness, others Musculoskeletal: denies: back pain, gout, joint pain, joint swelling, muscle pain, muscle stiffness, neck pain, others Integumetry: denies: bruises, change in color, change in hair/nails, dryness, laceration, lesions, lumps, rash, wounds, others Allergic/Immunocompromised: denies: Difficulty Healing, Frequent Infections, Hives, Itching, others Hematologic/Lymphatic: denies: anemia, blood clots, easy bleeding, easy bruising, swollen glands, others Endocrine: denies: excessive hunger, excessive sweating, excessive thirst, excessive urination, flushing, intolerance to cold, intolerance to heat, un explained weight gain, unexplained weight loss, others Psychiatric: denies: anxiety, bipolar disorder, depression, hopeless, panic disorder, schizophrenia, sleepless, suicidal, others All Other Systems: Reviewed and Negative Physical Exam General Appearance: No Apparent Distress, Normal HEENT: Normal ENT Inspection, Pharynx Normal, TMs Normal Neck: Full Range of Motion, Non-Tender, Normal, Normal Inspection Respiratory: Chest Non-Tender, Lungs Clear, No Accessory Muscle Use, No Respiratory Distress, Normal Breath Sounds Cardiovascular: No Edema, No JVD, No Murmur, No Gallop, Normal Peripheral Pu lses, Regular Rate/Rhythm Breast Exam: Deferred Gastrointestinal: No Organomegaly, Non Tender, No Pulsatile Mass, Normal Bowel Sounds, Soft Genitalia: Deferred Pelvic: Deferred Rectal: Deferred Extremities: No calf tenderness, Normal capillary refill, Normal inspection, Normal range of motion, Non-tender, No pedal edema Musculoskeletal : Apperance: Normal Neurologic: Alert, contract technical writer II-XII nml as Tested, No Motor Deficits, Normal Affect, Normal Mood, No Sensory Deficits Cerebellar Function: Normal Reflexes: Normal Skin: Dry, Normal Color, Warm Lymphatic: No Adenopathy Was a procedure done? Was a procedure done?: No Differential Dx Considerations may include: ACS, CVA, viral syndrome, infectious etiology, pneumonia, GERD, gastritis X-Ray, Labs, Meds, VS Vital Signs Date Time Temp Pulse Resp B/P (MAP) Pulse Ox O2 Delivery O2 Flow Rate FiO2 08/15/24 11:31 55 08/15/24 10:25 57 16 100 Room Air* 0 21 08/15/24 10:15 98.3 57 16 140/80 (100) 100 98.3 08/15/24 10:15 64 08/15/24 10:10 98.3 57 16 140/80 (100) 100 98.3 Lab Test 08/15/24 11:02 08/15/24 10:21 08/15/24 10:12 Range/Units Troponin I High Sensitivity < 3 L < 3 L </=54 ng/L Urine Color Light-yellow Yellow Urine Clarity Clear Clear Urine pH 7.5 5.0-9.0 Urine Specific [place] 1.021 1.001-1.035 Urine Protein Negative Negative Urine Ketones Negative Negative Urine Blood Negative Negative /uL Urine Nitrite Negative Negative Urine Bilirubin Negative Negative Urine Urobilinogen Normal Negative mg/dL Urine Leukocyte Esterase Negative Negative /uL Urine RBC <1 0 - 3 /hpf Urine Microscopic WBC < 1 0-3 /HPF Urine Squamous Epithelial Cells None seen <5 /hpf Urine Bacteria None seen None Seen /hpf Urine Glucose Normal Normal mg/dL White Blood Count 6.5 4.4-10.8 10^3/uL Red Blood Count 5.11 4.5-5.90 10^6/uL Hemoglobin 15.8 13.5-17.5 g/dL Hematocrit 45.7 41.0-53.0 % Mean Corpuscular Volume 89.5 80.0-100.0 fL Mean Corpuscular Hemoglobin 30.9 28.0-32.0 pg Mean Corpuscular Hemoglobin Concent 34.5 32.0-36.0 g/dL Red Cell Distribution Width 13.5 11.8-14.3 % Platelet Count 209 140-450 10^3/uL Mean Platelet Volume 9.4 6.9-10.8 fL Neutrophils (%) (Auto) 62.3 37.0-80.0 % Lymphocytes (%) (Auto) 27.6 10.0-50.0 % Monocytes (%) (Auto) 8.8 0.0-12.0 % Eosinophils (%) (Auto) 1.1 0.0-7.0 % Basophils (%) (Auto) 0.2 0.0-2.0 % Neutrophils # (Auto) 4.0 1.6-8.6 10 ^3/uL Lymphocytes # (Auto) 1.8 0.4-5.4 10 ^3/uL Monocytes # (Auto) 0.6 0-1.3 10 ^3/uL Eosinophils # (Auto) 0.1 0-0.8 10 ^3/uL Basophils # (Auto) 0 0-0.2 10 ^3/uL Nucleated Red Blood Cells 0.2 % Sodium Level 142 136-145 mmol/L Potassium Level 4.1 3.5-5.1 mmol/L Chloride Level 106 98-107 mmol/L Carbon Dioxide Level 29 20-31 mmol/L Anion Gap 7 5-15 Blood Urea Nitrogen 10 9-23 mg/dL Creatinine 0.99 0.700-1.30 mg/dL Glomerular Filtration Rate Calc 101 >90 mL/min BUN/Creatinine Ratio 10.1 10.0-20.0 Serum Glucose 87 74-106 mg/dL Calcium Level 10.2 8.7-10.4 mg/dL Current Medications Medications (Trade) Dose Ordered Sig/Caty Route Start Time Stop Time Status Last Admin Aspirin 324 mg ONCE ONCE PO 08/15/24 10:30 08/15/24 10:43 DC 08/15/24 10:30 Famotidine (Pepcid Tablet) 20 mg ONCE ONCE PO 08/15/24 10:30 08/15/24 10:43 DC 08/15/24 10:29 Ondansetron HCl (Zofran Po) 4 mg ONCE ONCE PO 08/15/24 10:30 08/15/24 10:43 DC 08/15/24 10:30 Time of 1ST Reevaluation: 10:50 Reevaluation 1ST: Unchanged Patient Education/Counseling: Diagnosis, Treatment, Prognosis Family Education/Counseling: No Family Present Departure 1 Departure Time of Disposition: 12:22 (Patient presented with chest pain that was conc erning for possible STEMI, ACS, PE, Pneumonia, Muscle Strain, COPD, Dissection. Data: 1. I ordered and reviewed the result of at least 3 labs including a CBC, BMP, and Troponin. 2. I independently interpreted the following tests: EKG which shows normal sinus rhythm and Chest X-ray which shows a benign chest.Risk:This patient presented with a high risk of morbidity due to further diagnostic testing or treatment and may suffer from an acute cardiac or respiratory disorder. After review of all the data patient is unlikely to have a pe , dissection, and is low risk for acs. Patient is stable at this time.Workup so far is benign and patient will be discharged with outpatient followup. ) Impression: Primary Impression: Acute chest pain Disposition: HOME / SELF CARE / HOMELESS Condition: Stable Additional Instructions: You presented today with chest pain. Your workup today was benign including labs, troponin, EKG, chest x-ray. Your pain may be from musculoskeletal strain, acid reflux, anxiety, or many other factors. It is important to follow up with your regular doctor within 1 week. If your symptoms worsen or you have any other concerns please return to the emergency room. Discharged With: Self Critical Care Note Critical Care Time?: Yes Critical care comment: Acute chest pain Authorized and Performed by: Angel Reyes MD Total critical care time: Approximately 36 minutes Due to a high probability of clinically significant, life threatening deterioration, the patient required my highest level of preparedness to intervene emergently and I personally spent this critical care time directly and personally managing the patient. This critical care time included obtaining a history; examining the patient; pulse oximetry; ordering and review of studies; arranging urgent treatment with development of a management plan; evaluation of patient's response to treatment; frequent reassessment; and, discussions with other providers. This critical care time was performed to assess and manage the high probability of imminent, life-threatening deterioration that could result in multi-organ failure. It was exclusive of separately billable procedures and treating other patients and teaching time. Please see my other sections and the rest of the note for further information on patient assessment and treatment. Stability Stability form required: No I personally scribed for ANGEL REYES MD ([email or web address]) on 08/15/24 at 11:17. Electronically submitted by Raad Gomez ([email or web address]). ANGEL REYES MD Aug 15, 2024 11:17
[2024-08-15 11:28] LABS: Urine Bacteria None Seen /hpf (None Seen)
[2024-08-15 11:31] VITALS: PULSE 55
[2024-08-15 11:42] LABS: Urine Blood Negative /uL (Negative); Urine Clarity Clear (Clear); Urine Color Light-Yellow (Yellow); Urine Protein, UAD Negative (Negative); Urine Specific Gravity 1.021 (1.001-1.035); Urine Squamous Epithelial Cell None Seen /hpf (<5); Urine Urobilinogen Normal (Negative); Urine WBC < 1 /HPF (0-3); Urine pH 7.5 (5.0-9.0)
[2024-08-15] MEDS: MAALOX PLUS or MAALOX 30 ML PO ONE (12:30)
--- NOTE | 2024-08-16 10:58 | ECG ---
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
--- NOTE | 2024-08-16 10:58 | ECG ---
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
== END 2024-08-15 13:04 | disposition home or self-care (01) ==
LOC: ER 10:08
DX: R07.89 Other chest pain (principal); F17.210 Nicotine dependence, cigarettes, uncomplicated; F32.A Depression, unspecified; F41.9 Anxiety disorder, unspecified; Z79.899 Other long term (current) drug therapy; Z88.1 Allergy status to other antibiotic agents
CPT/HCPCS: 36415; 71045; 80048; 81001; 84484; 85025; 93005; 99285; Q0162